=== PATIENT | female | born 1950 | race Caucasian/White ===

== ENCOUNTER 2019-12-29 07:27 | Outpatient (CLI) | payer OTHER ==
[~2019-12-29 07:27] MED LIST: AMARYL 4MG; ATENOLOL50 MG PO; AVALIDE 300-12.1 TAB PO; CARDURA XL4 MG/BOTTL PO; CATAPRES0.2 MG PO; LIPITOR20 MG PO; METFORMIN HCL500 MG PO; PLAVIX75 MG PO
== END 2019-12-29 07:32 | disposition home or self-care (01) ==
LOC: SONOGRAMA 07:27
DX: E04.2 Nontoxic multinodular goiter (principal)